=== PATIENT | female | born 1970 | race Caucasian/White ===

== ENCOUNTER 2017-02-14 20:46 | Emergency (ER) | payer MEDICARE ==
[~2017-02-14] VITALS: Ht 160 cm; Wt 92.7 kg
[2017-02-14] MEDS ORDERED: ALBU90AE IH (21:27)
[2017-02-14] MEDS ORDERED: ONDA8TAB9 PO (21:27)
[2017-02-14] MEDS ORDERED: AMLO10TA4 PO (21:27)
[2017-02-14] MEDS ORDERED: FLUT1DIS3 IH (21:27)
[2017-02-14] MEDS ORDERED: TIOT18CA IH (21:27)
[2017-02-14] MEDS ORDERED: MECL-105 PO (21:32)
[2017-02-14] MEDS ORDERED: ARIP2TAB11 PO (21:32)
[2017-02-14] MEDS ORDERED: LSNP10T PO (21:32)
[2017-02-14] MEDS ORDERED: SERT50TA PO (21:32)
[2017-02-14] MEDS ORDERED: VENL150C53 PO (21:32)
[2017-02-14] MEDS ORDERED: TRAZ-28 PO ×2 (21:32→23:13)
[2017-02-14] MEDS ORDERED: MELO-249 PO (21:32)
[2017-02-14] MEDS ORDERED: OMEP20TA33 PO (21:34)
[2017-02-14] MEDS ORDERED: METH20TA PO (21:34)
[2017-02-14] MEDS ORDERED: ALPR0.5T PO (21:34)
[2017-02-14] MEDS ORDERED: ALBUTEROL 0.5% NEB SOLUTION 2.5 MG/0.5 ML VIAL INH ONE (21:35)
--- NOTE | 2017-02-14 22:16 | Diagnostic Imaging Report ---
INDICATION: Cough. EXAM: PA and lateral chest obtained at 10:00 hours p.m. FINDINGS: The heart and mediastinal silhouette are normal in appearance. The lungs are clear. There is no pneumothorax or pleural fluid. IMPRESSION: Negative chest. Dictated by: Dictated on workstation # [id number]
[2017-02-14] MEDS ORDERED: IPR14UD INH (23:13)
[2017-02-14] MEDS ORDERED: AMOX-358 PO (23:13)
[2017-02-14] MEDS ORDERED: ED- AMOXICILLIN/CLAVULONATE 875MG-125MG (AUGMENTIN) 3 TABLETS/BTL PO ONE (23:15)
[2017-02-14 23:23] VITALS: BP 144/72
== END 2017-02-14 23:24 | disposition home or self-care (01) ==
LOC: ED 20:51
DX: J40 Bronchitis, not specified as acute or chronic (principal)
CPT/HCPCS: 71020; 94640; 99282; 99283

== ENCOUNTER → 2017-02-23 | Emergency (ER) | payer MEDICARE ==
[~2017-02-23] VITALS: Ht 162.6 cm; Wt 92.0 kg
[~2017-02-23] MED LIST: ALBU90AE IH; ALPR0.5T PO; AMLO10TA4 PO; AMOX-358 PO; ARIP2TAB11 PO; FLUT1DIS3 IH; HALOPERIDOL 5 MG/ML (HALDOL) 1 ML AMP IM ONE; IPR14UD INH; LORazepam 2 MG/ML (ATIVAN) 1 ML VIAL IM ONE; LSNP10T PO; MECL-105 PO; MELO-249 PO; METH20TA PO; OMEP20TA33 PO; ONDA8TAB9 PO; PROMETHAZINE 25 MG/ML (PHENERGAN) 1 ML VIAL IM ONE; SERT50TA PO; TIOT18CA IH; TRAZ-28 PO; VENL150C53 PO
[2017-02-23 15:01] VITALS: BP 131/79
--- OUTSIDE RECORDS SUMMARY | 2017-02-23 15:02 | XMS REPORT | Continuity of Care Document ---
Author Author [facility] Address Unknown Phone Unavailable Support Name Relationship Address Phone CAROLYN AJ MD Caregiver [address] [place] [address] MANDY ELIZALDE Next Of Kin [address], [place] [address] Insurance Providers Payer Name Policy Number Subscriber Name Relationship [facility] [id number] Boyd Clemons 16 Self / Same As Patient Advance Directives Directive Response Recorded Date/Time Advanced Directives No 02/14/17 8:50pm Chief Complaint and Reason for Visit Chief Complaint Respiratory Complaint Reason for Visit Bronchitis Problems Active Problems Medical Problem Onset Date Status Bronchitis ~02/14/2017 Acute Medications Current Home Medications Medication Dose Units Route Directions Days/Qty Instructions Start Date Ondansetron 8 Mg 8 Mg ORAL Three Times A Day as needed for Nausea Tiotropium [place] 18 Mcg 18 Mcg RESPIRATORY (INHALATION) Bedtime Fluticasone/Salmeterol 1 Each 1 Each RESPIRATORY (INHALATION) Twice A Day 02/14/17 Albuterol Sulfate 90 Mcg 90 Mcg RESPIRATORY (INHALATION) As Needed as needed for Air Hunger 02/14/17 Amlodipine Besylate 10 Mg 10 Mg ORAL Daily 02/14/17 Lisinopril (Zestril) 10 Mg 10 Mg ORAL Daily 02/14/17 Meloxicam 15 Mg 15 Mg ORAL Daily 02/14/17 Galopiprazole 2 Mg 2 Mg ORAL Daily 02/14/17 Venlafaxine Hcl 150 Mg 150 Mg ORAL Twice A Day 02/14/17 Trazodone Hcl 50 Mg 50 Mg ORAL Bedtime 02/14/17 Sertraline Hcl (Zoloft) 50 Mg 50 Mg ORAL Daily 02/14/17 Meclizine Hcl (Antivert) 25 Mg 1-2 Tab ORAL As Needed as needed for Dizziness 20 02/14/17 Omeprazole Magnesium 20 Mg 40 Mg ORAL As Needed as needed for Dyspepsia 02/14/17 Methylphenidate Hcl 20 Mg 20 Mg ORAL Twice A Day 02/14/17 Alprazolam 0.5 Mg 0.5 Mg ORAL Three Times A Day 02/14/17 Trazodone Hcl 50 Mg 50 Mg ORAL Take At Night 10 02/14/17 Ipratropium [place] 17 Mcg/Puff 17 Mcg RESPIRATORY (INHALATION) Four Times Daily 1 02/14/17 Amoxicillin/Clavulanate Potassium 1 Each 1 Each ORAL Ttwice A Day 7 Social History Query Response Start Date Stop Date Smoking Status Current every day smoker Hospital Discharge Instructions No hospital discharge instructions. Plan of Care Discharge Date 02/14/17 11:24pm Disposition 01 HOME OR SELF-CARE Condition at Discharge Stable Instructions/Education Provided Acute Bronchitis, Adult (DC) Prescriptions See Medication Section Additional Instructions/Education Use all inhalers as directed. Try hot steamy shower to help breathe. Take all medications as directed. Drink lots water over next 2 days. Follow-up with family physician as scheduled Some of your test results may not be complete prior to your leaving the Emergency Department. The Emergency Department is not authorized to give test results over the phone. Please contact the doctor's office listed in this packet of information for your final results. Follow up with your primary care physician or return to the Emergency Department for worsening or worrisome symptoms. * Emergency Department phone number: [phone], x [phone]* MEDICAL RECORD If you need copies of your X-rays, call [phone]. If you need copies of your medical record, including lab results, a signed authorization for release of records will be required. A telephone call for release of Health Information is not allowed. BILLING Billing can sometimes be confusing and frustrating. To help avoid confusion in the future, please take a moment to acquaint yourself with the billing parties for services. [employer] Emergency Room Services [facility] Physician Services [facility] X-rays [place] [facility] Patients will receive bills for services from the appropriate provider. If you have any questions about your [facility] bill, our staff will be happy to assist you. Please call [phone], and ask for the billing department. THANK YOU for choosing [facility] as your emergency care provider! Care Plan and Goals ~~Discharge Care Plan~~ Problem: Bronchitis Goal: Able to breathe without shortness of air and perform usual activities. Instructions: Take medication(s) as directed. Follow physician discharge instructions. Follow up with primary care physician as directed. Use inhalers as needed. Return if symptoms worsen Functional Status No functional status results. Allergies, Adverse Reactions, Alerts Allergen Type Severity Reaction Status Last Updated Cyclobenzaprine Allergy Severe Makes muscles jerk Active 02/14/17 diphenhydramine Allergy Severe makes muscles, jerk Active 02/14/17 ketorolac Allergy Severe Rash and vomitting Active 02/14/17 Morphin Allergy Severe rash, vomitting Active 02/14/17 Immunizations No immunization records. Vital Signs Acute Vital Signs Vital Response Date/Time Temperature (Fahrenheit) 97.8 02/14/2017 8:50pm Pulse 88 bpm 02/14/2017 11:23pm Respirations 18 02/14/2017 11:23pm Height 5 ft 3 in Weight 204 lb Body Mass Index 36.0 kg/m^2 Results No known relevant diagnostic tests, laboratory data and/or discharge summary. Procedures No known history of procedures. Encounters Encounter Location Arrival/Admit Date Discharge/Depart Date Attending Provider Departed Emergency Room [facility] 02/14/17 8:51pm 02/14/17 11:24pm CAROLNY AJ MD Recent Diagnosis
== END | disposition home or self-care (01) ==
LOC: EDUNIT# 14:55 → ED 14:58
DX: R51 Headache (principal)
CPT/HCPCS: 96372; 99282; J1630; J2060; J2550